=== PATIENT | female | born 1985 | race Caucasian/White ===

== ENCOUNTER 2018-01-08 21:16 | Emergency (ER) | payer BC, OTHER ==
[2018-01-08] MEDS ORDERED: HYDROCODONE/APAP (5/325) TAB PO (21:45)
[2018-01-08] MEDS: ONDANSETRON (ODT) 4 MG TAB ODT (22:02)
[2018-01-08] MEDS: HYDROCODONE/APAP (5/325) TAB PO (22:02)
[2018-01-08] MEDS: morphine 4 MG/ML VIAL IM (22:24)
[2018-01-08 23:10] LABS: ADD UMIC YES; UR ASCORBIC ACID NEGATIVE (NEGATIVE); UR BACTERIA FEW /HPF (NONE SEEN); UR BILIRUBIN (Dip) NEGATIVE (NEGATIVE); UR BLOOD (Dip) 3+ mg/dL (NEGATIVE); UR CLARITY CLOUDY (CLEAR); UR COLOR AMBER (YELLOW); UR GLUCOSE (Dip) NEGATIVE (NEGATIVE); UR KETONES (Dip) NEGATIVE (NEGATIVE); UR LEUKOCYTE ESTERASE (Dip) TRACE Leu/ul (NEGATIVE); UR MUCUS MODERATE /HPF (NONE SEEN); UR NITRITE (Dip) NEGATIVE (NEGATIVE); UR RBC > 182 /HPF (0-5); UR SPECIFIC GRAVITY (Dip) 1.023 (1.003-1.030); UR SQUAMOUS EPITHELIAL CELL MODERATE /HPF (FEW); UR TOTAL PROTEIN (Dip) 2+ mg/dl (NEGATIVE); UR UROBILINOGEN (Dip) NEGATIVE (NEGATIVE); UR WBC 128 /HPF (0-5)
[2018-01-08] MEDS: LIDOCAINE 1% (MDV) 10 ML INJ INFIL (23:25)
[2018-01-08] MEDS: CEFTRIAXONE 1 GM INJ IM (23:25)
== END 2018-01-09 00:27 | disposition home or self-care (01) ==
LOC: FTE 01-09 00:27
DX: N39.0 Urinary tract infection, site not specified (principal)
CPT/HCPCS: 76830; 76856; 81001; 81025; 96372; 99285-25